=== PATIENT | male | born 1950 | race Caucasian/White ===

== ENCOUNTER 2025-07-29 17:38 | Observation (INO) ==
[2025-07-29 18:04] VITALS: BMI 29.2
--- NOTE | 2025-07-29 18:08 | EKG ---
Test Reason : weakness Blood Pressure : */* mmHG Vent. Rate : 52 BPM Atrial Rate : 125 BPM P-R Int : * ms QRS Dur : 100 ms QT Int : 466 ms P-R-T Axes : 118 45 40 degrees QTc Int : 433 ms sinus arrythmia Nonspecific T wave abnormality Abnormal ECG No previous ECGs available Confirmed by Slim Ruth MD ([id number]) on 07/30/2025 9:45:29 AM Referred By: Confirmed By: Slim Ruth MD
--- NOTE | 2025-07-29 18:12 | DR.DIZZY ---
HPI Time seen Time Seen by Provider: 07/29/25 17:40 PCP Primary Care Physician: Enrrique Complaint Chief Complaint Doctor Comments: 75-year-old male to ED from home via EMS with increasing weakness. Patient states that he fell down about a month ago with injury to head and neck back was not evaluated. Has not been feeling well since that time. His roommate found him today slumped over he is unsure what happened unsure about LOC. Unknown time of last well. Syncopal cardiac workup initiated will consult teleneuro Chief Complaint:: EMS state that the patient was seen slumped over in a chair by his room mate. They state that he was very weak and lethargic on arrival, and his blood pressure was low at 90/50. The patient states that he is unsure what happened, but he felt really weak and hurts from his neck down from a fall around a month ago. He says that the pain is mostly in his hips and right leg. He did not get seen after the fall. COVID-19 Coronavirus risk:travel/contact w/high risk person: No Has patient experienced Coronavirus symptoms: No Source History Provided: Patient and EMS Mode of Arrival Mode of Arrival: Stretcher Timing Onset of Chief Complaint: 07/29/25 Context Stroke Symptoms: None PMH PMH Past Medical History: Yes Past Medical History: Diabetes, Dyslipidemia, Hypertension and NM Past Surgical History: Yes Surgical History: CABG/Valve Surgery and Ortho Surgery Family History History of Family Medical Conditions: Yes Family Medical History: Diabetes Mellitus, Cancer, NM, Coronary Artery Disease and Hypertension Social History Does patient currently use any type of tobacco product: No Have you used tobacco products in the last 12 months: No Type of Tobacco Use: None Does any household member use tobacco: No Alcohol Use: None Do you use any recreational Drugs:: No Lives With: Family Lives Where: Home Travel Risk Coronavirus risk:travel/contact w/high risk person: No Has patient experienced Coronavirus symptoms: No Infectious screening In the last 2 months have you had wt loss of >10#?: NO Have you had fever, night sweats or hemotysis?: No Have you traveled outside the country in the last 6 months?: No Isolation: Standard ROS Review of Systems Constitutional: No Symptoms Reported Eyes: No Symptoms Reported ENTM: No Symptoms Reported Respiratoy: No Symptoms Reported Cardiovascular: No Symptoms Reported Gastrointestinal/Abdominal: No Symptoms Reported Genitourinary: No Symptoms Reported Neurological: See HPI, Numbness, Paresthesia, Weakness, Dizziness, Problems Walking and Other (Questionable LOC) Musculoskeletal: No Symptoms Reported Integumentary: No Symptoms Reported Hematologic/Lymphatic: No Symptoms Reported Endocrine: No Symptoms Reported Psychiatric: No Symptoms Reported All Other Systems: Reviewed and Negative PE Vital Signs Vitals: Vital Signs Temperature 97.5 F Pulse Rate 47 Pulse Rate 56 Pulse Rate 52 Pulse Rate 52 Pulse Rate 51 Respiratory Rate 13 Respiratory Rate 15 Respiratory Rate 20 Respiratory Rate 18 Blood Pressure 142/61 Blood Pressure 142/61 Blood Pressure 148/65 O2 Sat by Pulse Oximetry 99 O2 Sat by Pulse Oximetry 99 O2 Sat by Pulse Oximetry 96 O2 Sat by Pulse Oximetry 99 General Limitations: No Limitations General Appearance: Alert and In No Apparent Distress (Alert answers questions but slow to speak) Head Head Exam: Normal Inspection Eyes Eye exam: Normal Appearance ENT ENT Exam: Normal Exam, Normal Oropharynx and Normal External Ear Exam Neck Neck Exam: Normal Inspection and Full ROM Chest Chest Inspection: Normal Inspection Respiratory Respiratory Exam: Normal Lung Sounds Bilat Cardiovascular Cardiovascular Exam: Regular Rate and Normal Rhythm Abdominal Exam Abdominal Exam: Normal Inspection, Normal Bowel Sounds and Soft Rectal Rectal Exam: Deferred Extremeties Extremities Exam: Normal Inspection and Full ROM Back Back Exam: Normal Inspection and Full ROM Neurologic Neurological Exam: Alert and Oriented X3 Psychiatric Psychiatric Exam: Normal Affect and Normal Mood Skin Skin Exam: Warm, Dry, Intact and Normal Color COURSE Treatment Treatment: Discussed with teleneuro no focal signs outside of window does not recommend CTA head neck nor thrombolytics. Continue metabolic workup and admit for MRI tomorrow Discussed with patient family reviewed findings. Discussed with Dr. Osuna Will admit for observation MRI tomorrow as recommended by teleneuro. [facility] Labs Reviewed 07/29/25 18:59 07/29/25 18:59 Laboratory: WBC 8.0 X10^3/uL (3.6-10.0) 07/29/25 18:59 RBC 4.21 X10^6/uL (4.7-6.0) L 07/29/25 18:59 Hgb 13.0 g/dL (13.5-18.0) L 07/29/25 18:59 Hct 38.2 % (42.0-54.0) L 07/29/25 18:59 MCV 90.7 fL (80.0-100.0) 07/29/25 18:59 MCH 30.9 pg (27.0-34.0) 07/29/25 18:59 MCHC 34.1 g/dL (33.0-35.0) 07/29/25 18:59 RDW 14.3 % (11.6-16.5) 07/29/25 18:59 Plt Count 152 X10^3/uL (150.0-450.0) 07/29/25 18:59 MPV 8.1 fL (7.4-11.0) 07/29/25 18:59 Neut % (Auto) 75.2 % (42.0-75.0) H 07/29/25 18:59 Lymph % (Auto) 15.7 % (21.0-51.0) L 07/29/25 18:59 [place] % (Auto) 7.1 % (0.0-13.0) 07/29/25 18:59 Eos % (Auto) 1.7 % (0.9-2.9) 07/29/25 18:59 Baso % (Auto) 0.3 % (0.2-1.0) 07/29/25 18:59 Neut # (Auto) 6.0 x10^3/uL (2.2-4.8) H 07/29/25 18:59 Lymph # (Auto) 1.3 X10^3/uL (1.3-2.9) 07/29/25 18:59 [place] # (Auto) 0.6 x10^3/uL (0.3-0.8) 07/29/25 18:59 Eos # (Auto) 0.1 x10^3/uL (0.0-0.2) 07/29/25 18:59 Baso # (Auto) 0.0 X10^3/uL (0.0-0.1) 07/29/25 18:59 Absolute Nucleated RBC 0.0 /100WBC 07/29/25 18:59 PT 13.6 SECONDS (11.8-14.3) 07/29/25 18:59 INR Target Range - 07/29/25 18: INR 1.03 (0.8-1.3) 07/29/25 18:59 APTT 28.0 SECONDS (22.9-36.5) 07/29/25 18:59 PTT Comment - 07/29/25 18:59 Fibrinogen 384 mg/dL (239-489) 07/29/25 18:59 Sodium 143 mmol/L (136-145) 07/29/25 18:59 Corrected Sodium 145 mmol/L (136-145) 07/29/25 18:59 Potassium 4.6 mmol/L (3.5-5.1) 07/29/25 18:59 Chloride 106 mmol/L (98-107) 07/29/25 18:59 Carbon Dioxide 31.6 mmol/L (21-32) 07/29/25 18:59 BUN 37 mg/dL (7-18) H 07/29/25 18:59 Creatinine 1.83 mg/dL (0.70-1.30) H 07/29/25 18:59 Est GFR (MDRD) Af Amer 46 (>60) L 07/29/25 18:59 Est GFR (MDRD) Non-Af 38 (>60) L 07/29/25 18:59 Glucose 165 mg/dL (65-99) H 07/29/25 18:59 POC Glucose (mg/dL) 227 mg/dL (65-99) H 07/29/25 18:11 Calcium 8.8 mg/dL (8.5-10.1) 07/29/25 18:59 Corrected Calcium 9.4 mg/dL (8.5-10.1) 07/29/25 18:59 Total Bilirubin 0.30 mg/dL (0.2-1.0) 07/29/25 18:59 AST 16 Units/L (15-37) 07/29/25 18:59 ALT 17 Units/L (12-78) 07/29/25 18:59 Alkaline Phosphatase 111 Units/L (46-116) 07/29/25 18:59 Creatine Kinase 70 Units/L (39-308) 07/29/25 18:59 Troponin I High Sens 13.5 ng/L (4.0-60.0) 07/29/25 18:59 Total Protein 6.2 g/dL (6.4-8.2) L 07/29/25 18:59 Albumin 3.2 g/dL (3.4-5.0) L 07/29/25 18:59 Globulin 3.0 g/dL (2.5-4.5) 07/29/25 18:59 Albumin/Globulin Ratio 1.1 Ratio (1.1-2.1) 07/29/25 18:59 Triglycerides 71 mg/dL (0-150) 07/29/25 18:59 Cholesterol 164 mg/dL (0-200) 07/29/25 18:59 LDL Cholesterol, Calc 102 mg/dL (0-100) H 07/29/25 18:59 HDL Cholesterol 48 mg/dL (40-60) 07/29/25 18:59 Cholesterol/HDL Ratio 3.4 (0.0-5.0) 07/29/25 18:59 Specimen Type Clean catch urine 07/29/25 18:58 Urine Color Yellow (YELLOW) 07/29/25 18:58 Urine Appearance Clear (CLEAR) 07/29/25 18:58 Urine pH 6.0 (5.0 - 8.0) 07/29/25 18:58 Ur Specific [place] 1.010 (1.000-1.030) 07/29/25 18:58 Urine Protein 1+ (NEGATIVE) 07/29/25 18:58 Urine Glucose (UA) 4+ (NEGATIVE) 07/29/25 18:58 Urine Ketones Negative (NEGATIVE) 07/29/25 18:58 Urine Blood Negative (NEGATIVE) 07/29/25 18:58 Urine Nitrite Positive (NEGATIVE) 07/29/25 18:58 Urine Bilirubin Negative (NEGATIVE) 07/29/25 18:58 Urine Urobilinogen Normal (NORMAL) 07/29/25 18:58 Ur Leukocyte Esterase 2+ (NEGATIVE) 07/29/25 18:58 Urine RBC 0-2 /HPF (0-3) 07/29/25 18:58 Urine WBC 20-30 /HPF (0-5) A 07/29/25 18:58 Ur Squamous Epith Cells Rare /HPF (NEGATIVE) 07/29/25 18:58 Amorphous Sediment 1+ /HPF (NEGATIVE) 07/29/25 18:58 Urine Bacteria Trace /HPF (NEGATIVE) 07/29/25 18:58 Ur Culture Indicated? Yes/culture set up 07/29/25 18:58 XRAY X-ray Results: me: DURAN WALKER : 1950 Sex: M Location: ER Order Number(s): [id number] Procedure(s):CT CERVICAL SPINE W/O CON Ordering Physician: Scott Sanders Primary Care: NFD,None Service Date: 07/29/25 Service Time: 183 EXAM: CERVICAL SPINE W/O CON HISTORY: slumped over in a chair. They state that he was very weak and lethargic on arrival, and his blood pressure was low at 90/50; COMPARISON: MRI cervical spine from April 03, 2021 TECHNIQUE: Axial non-contrast images of the cervical spine with coronal and sagittal reformats. Radiation dose: 346.76 mGy-cm total DLP FINDINGS: Vertebral body heights are maintained with normal alignment. Status post anterior spinal fusion at C3-C4. Multilevel cbdk-ky-duovlivp degenerative disc and joint changes with bulky anterior endplate marginal osteophyte formation. Multilevel neural foraminal narrowing. Status post multilevel laminectomies. No fracture identified. Posterior elements are intact without jumped or perched facets. Prevertebral soft tissues are normal. Atlantoaxial articulation is intact. Soft tissues are unremarkable. Lung apices are unremarkable. IMPRESSION: 1. No acute abnormality. 2. Status post anterior spinal fusion at C3-C4. Multilevel tkko-zp-yqsqavyg degenerative disc and joint changes with bulky anterior endplate marginal osteophyte formation. Multilevel neural foraminal narrowing. Name: DURAN WALKER : 1950 Sex: M Location: ER Order Number(s): [id number] Procedure(s):BRAIN CT W/O CON Ordering Physician: Scott Sanders Primary Care: NFD,None Service Date: 07/29/25 Service Time: 180 EXAM: BRAIN W/O CON HISTORY: slumped over in a chair. They state that he was very weak and lethargic on arrival, and his blood pressure was low at 90/50; COMPARISON: None. TECHNIQUE: Axial non-contrast images of the head were obtained with coronal and sagittal reformats provided. Radiation dose: 917.54 mGy-cm total DLP FINDINGS: No abnormal areas of acute attenuation in the brain parenchyma. Muñoz-white differentiation remains intact. No intracranial, extra-axial, fluid collection. No hemorrhage. Periventricular chronic microvascular disease. No mass, mass effect or midline shift. Age related brain parenchymal global atrophy. No ventriculomegaly. No acute fracture. Sinuses are well aerated. Mastoid air cells are well aerated. Globes and intra-orbital contents are unremarkable. IMPRESSION: No acute intracranial abnormality identified. Opioid Opioid Risk Tool Age (Marcos box if 16-45): No History of Preadolescent Sexual Abuse: No Total: 0 Total Score Risk Category: Low Risk Copyright: [facility] predicting aberrant behaviors Discharge Plan Diagnosis Discharge Problem: AMS (altered mental status), Urinary tract infection Discharge Plan Patient Disposition: ADMITTED INPATIENT Condition: Stable Prescriptions: No Action carvedilol 25 mg tablet 25 mg PO BID Qty: 200 2RF meclizine 25 mg tablet 25 mg PO QDAY PRN (Reason: motion sickness) Qty: 30 2RF lorazepam [Ativan] 0.5 mg tablet 0.5 mg PO BID MDD 2 PRN (Reason: anxiety) 5 Days Qty: 10 0RF aspirin [Adult Low Dose Aspirin] 81 mg tablet,delayed release (DR/EC) 81 mg PO QDAY tamsulosin 0.4 mg capsule 0.4 mg PO QPM Qty: 30 3RF ropinirole 1 mg tablet 1 mg PO QPM Qty: 90 3RF lisinopril 20 mg tablet 20 mg PO BID Qty: 90 3RF Linzess 290 mcg capsule 290 mcg PO QDAY Qty: 90 3RF atorvastatin 40 mg tablet 40 mg PO QPM Qty: 30 3RF allopurinol 100 mg tablet 50 mg PO QDAY Qty: 50 2RF albuterol sulfate 90 mcg/actuation HFA aerosol inhaler 2 puff PO Q4-6H PRN (Reason: shortness of breath or wheezing) Qty: 6.7 3RF Farxiga 10 mg tablet 10 mg PO QDAY Qty: 100 2RF furosemide 20 mg tablet 20 mg PO QDAY Qty: 100 2RF glipizide 10 mg tablet 10 mg PO QDAY Qty: 100 2RF levothyroxine 125 mcg tablet 125 mcg PO QDAY Qty: 100 2RF hydrocortisone [Anusol-HC] 2.5 % cream with perineal applicator 1 applic DE QD-BID PRN (Reason: pain) Qty: 30 0RF hydrocodone-acetaminophen 10-325 mg tablet 1 tab PO QID MDD 4 PRN (Reason: pain) 30 Days Qty: 120 0RF Health Concerns: Post Hospitalization: new medications and changes needed to prevent readmission or further decline. Pt educated and given instructions on all concerns. Plan of Treatment: Continue with present treatment and follow up plan. Pt is to keep follow up appointment as instructed and take medications as ordered. Follow ups/Referrals Follow ups/Referrals: NFD,None [Primary Care Provider] - 3 days Instructions Print Language: THAI
--- NOTE | 2025-07-29 18:43 | CT ---
EXAM: BRAIN W/O CON HISTORY: slumped over in a chair. They state that he was very weak and lethargic on arrival, and his blood pressure was low at 90/50; COMPARISON: None. TECHNIQUE: Axial non-contrast images of the head were obtained with coronal and sagittal reformats provided. Radiation dose: 917.54 mGy-cm total DLP FINDINGS: No abnormal areas of acute attenuation in the brain parenchyma. Muñoz-white differentiation remains intact. No intracranial, extra-axial, fluid collection. No hemorrhage. Periventricular chronic microvascular disease. No mass, mass effect or midline shift. Age related brain parenchymal global atrophy. No ventriculomegaly. No acute fracture. Sinuses are well aerated. Mastoid air cells are well aerated. Globes and intra-orbital contents are unremarkable. IMPRESSION: No acute intracranial abnormality identified. THIS IS AN ELECTRONICALLY VERIFIED FINAL REPORT 07/29/2025 6:39 PM - Electronically signed by Kentrell Machado MD
--- NOTE | 2025-07-29 18:59 | CT ---
EXAM: CERVICAL SPINE W/O CON HISTORY: slumped over in a chair. They state that he was very weak and lethargic on arrival, and his blood pressure was low at 90/50; COMPARISON: MRI cervical spine from April 03, 2021 TECHNIQUE: Axial non-contrast images of the cervical spine with coronal and sagittal reformats. Radiation dose: 346.76 mGy-cm total DLP FINDINGS: Vertebral body heights are maintained with normal alignment. Status post anterior spinal fusion at C3-C4. Multilevel wfuh-ac-svkmlwqt degenerative disc and joint changes with bulky anterior endplate marginal osteophyte formation. Multilevel neural foraminal narrowing. Status post multilevel laminectomies. No fracture identified. Posterior elements are intact without jumped or perched facets. Prevertebral soft tissues are normal. Atlantoaxial articulation is intact. Soft tissues are unremarkable. Lung apices are unremarkable. IMPRESSION: 1. No acute abnormality. 2. Status post anterior spinal fusion at C3-C4. Multilevel amfp-qb-icsokibe degenerative disc and joint changes with bulky anterior endplate marginal osteophyte formation. Multilevel neural foraminal narrowing. THIS IS AN ELECTRONICALLY VERIFIED FINAL REPORT 07/29/2025 6:56 PM - Electronically signed by Kentrell Machado MD
[2025-07-29 19:04] LABS: BLOOD/HEMOGLOBIN,URINE NEGATIVE (NEGATIVE); LEUKOCYTE ESTERASE ,URINE 2+ (NEGATIVE); NITRITES,URINE POSITIVE (NEGATIVE)
--- NOTE | 2025-07-29 19:05 | TELESTROKE ---
[facility] Consult Date of Consult Date of Exam: 07/29/25 Time of Arrival to the ED: 17:38 Allergies Allergies Allergy/AdvReac Type Severity Reaction Status Date / Time No Known Drug Allergies Allergy Unknown Verified 07/29/25 18:54 Vital Signs Vital Signs: Temp Pulse Resp BP Pulse Ox O2 Del Method 07/29/25 17:56 97.5 F L 51 L 18 148/65 99 Room Air History of Present Illness History of Present Illness: [facility] Patient Name:Marlo Martínez Date of :1950 Identification Number: Date of Service:07/29/2025 18:11:57 Diagnosis:M62.81 - Generalized Muscle Weakness Impression: 75-year-old man with history of hypertension, hyperlipidemia, diabetes, hypothyroidism, chronic back pain on opiate therapy, presenting to the hospital with a lightheaded feeling along with generalized weakness, and found slumped over in his chair by his roommate, unclear last known normal. He was noted to be mildly hypotensive and bradycardic. At the time of my assessment, patient's blood pressure is improved and he feels somewhat better. NIH stroke scale is a 4, patient does not know month, has mild dysarthria, and mild drift in both arms. Noncontrast head CT did not show acute abnormalities. Thrombolytic was not advised given unclear last known normal, lack of severe focal deficits, and also had head trauma 1 month ago. Low clinical suspicion for LVO, so CTA not pursued. I suspect the possibility of hemodynamic etiology to his symptoms (from hypotension and bradycardia). Consider underlying cardiac etiology, versus metabolic/infectious causes. Lower suspicion for stroke, although considering the acute onset the patient's symptoms, along with his multiple vascular risk factors, would advise further workup to exclude the possibility of stroke. Our recommendations are outlined below. Recommendations: Stroke/Telemetry Floor Neuro Checks (Q4) Bedside Swallow Eval DVT Prophylaxis IV Fluids, Normal Saline Head of Bed 30 Degrees Euglycemia and Avoid Hyperthermia (PRN Acetaminophen) Initiate or continue Aspirin 81 MG daily Antihypertensives PRN if Blood pressure is greater than 220/120 or there is a concern for End organ damage/contraindications for permissive HTN. If blood pressure is greater than 220/120 give labetalol PO or IV or Vasotec IV with a goal of 15% reduction in BP during the first 24 hours. -MRI brain w/o contrast -MRA head w/o contrast -MRA neck w/wo contrast -metabolic/infectious/cardiac work-up -consider checking orthostatic vitals Sign Out: Discussed with Emergency Department Provider Advanced Imaging:Advanced Imaging Deferred because: Stroke not suspected with clinical presentation and exam Metrics: Last Known Well: Unknown Dispatch Time: 07/29/2025 18:11:57 Arrival Time: 07/29/2025 17:38:00 Initial Response Time: 07/29/2025 18:19:36Symptoms: generalized weakness, lightheaded. Initial patient interaction: 07/29/2025 18:22:34 NIHSS Assessment Completed: 07/29/2025 18:33:32Patient is not a candidate for Thrombolytic. Thrombolytic Medical Decision: 07/29/2025 18:34:00Patient was not deemed candidate for Thrombolytic because of following reasons: Significant head trauma or stroke in previous 3 months . Care-team unable to determine eligibility. . CT Head: I personally reviewed all the CT images that were available to me and it showed: no acute intracranial abnormalities Primary Provider Notified of Diagnostic Impression and Management Plan on: 07/29/2025 18:39:44 History of Present Illness:Patient is a 75 year old Male. Patient was brought by EMS for symptoms of generalized weakness, lightheaded. 75 years old patient presented with altered consciousness after being found slumped over in a chair by their roommate. The patient reports that he was sitting in his chair when he suddenly became unable to move or function properly. He experienced lightheadedness, weakness, and a feeling as if he was going to faint or pass out. The patient states, "I couldn't function. I didn't know what I was doing," indicating some disorientation during the episode. The patient is uncertain about the exact time when symptoms began or when he last felt normal prior to the incident. His roommate called emergency services. Upon initial assessment, the patient's heart rate was noted to be low at 48-51 beats per minute, and his blood pressure was 90/50 mmHg. He received intravenous fluids, which improved his blood pressure, though his heart rate remained low. The patient reports that he feels some improvement, but still feels generally weak. Additionally, the patient describes a fall that occurred approximately one month ago when he fell off two steps, hit the back of his head against a recliner. Since this fall, he has been experiencing pain from his neck down through his hips and right leg. The patient takes a daily 81 mg aspirin. Past Medical History: Hypertension Diabetes Mellitus Hyperlipidemia There is no history of Stroke Other PMH: hypothyroidism; chronic back pain, on opioid therapy Medications: No Anticoagulant use Antiplatelet use:Yesaspirin 81 mg daily Reviewed EMR for current medications Allergies: Reviewed Social History: Drug Use: No Family History: There is no family history of premature cerebrovascular disease pertinent to this consultation ROS : 14 Points Review of Systems was performed and was negative except mentioned in HPI. Past Surgical History: There Is No Surgical History Contributory To Todays Visit Examination: BP(148/65),Pulse(51), 1A: Level of Consciousness - Alert; keenly responsive+ 0 1B: Ask Month and Age - 1 Question Right+ 1 1C: Blink Eyes & Squeeze Hands - Performs Both Tasks+ 0 2: Test Horizontal Extraocular Movements - Normal+ 0 3: Test Visual Meza - No Visual Loss+ 0 4: Test Facial Palsy (Use Grimace if Obtunded) - Normal symmetry+ 0 5A: Test Left Arm Motor Drift - Drift, but doesn't hit bed+ 1 5B: Test Right Arm Motor Drift - Drift, but doesn't hit bed+ 1 6A: Test Left Leg Motor Drift - No Drift for 5 Seconds+ 0 6B: Test Right Leg Motor Drift - No Drift for 5 Seconds+ 0 7: Test Limb Ataxia (FNF/Heel-Jim) - No Ataxia+ 0 8: Test Sensation - Normal; No sensory loss+ 0 9: Test Language/Aphasia - Normal; No aphasia+ 0 10: Test Dysarthria - Mild-Moderate Dysarthria: Slurring but can be understood+ 1 11: Test Extinction/Inattention - No abnormality+ 0 NIHSS Score:4 NIHSS Free Text :unable to identify month mild shakiness in both arms Pre-Morbid Modified David Scale:3 Points = Moderate disability; requiring some help, but able to walk without assistance Spoke with :Dr. Sadners This consult was conducted in real time using interactive audio and video technology. Patient was informed of the technology being used for this visit and agreed to proceed. Patient located in hospital and provider located at home/office setting. Patient is being evaluated for possible acute neurologic impairment and high probability of imminent or life-threatening deterioration. I spent total of 45 minutes providing care to this patient, including time for face to face visit via telemedicine, review of medical records, imaging studies and discussion of findings with providers, the patient and/or family. Dr Vern Orellana [facility] For Inpatient follow-up with [facility] physician please call [facility] at . As we are not an outpatient service for any post hospital discharge needs please contact the hospital for assistance. If you have any questions for the [facility] physicians or need to reconsult for clinical or diagnostic changes please contact us via [facility] at . Signature :Vern Orellana Medical Decision Making Labs: Laboratory Results - last 24 hr 07/29/25 18:11 POC Glucose (mg/dL) 227 H
[2025-07-29 19:06] LABS: APPEARANCE,URINE CLEAR (CLEAR)
[2025-07-29 19:14] LABS: MEAN PLATELET VOLUME 8.1 fL (7.4-11.0); RED CELL DISTRIBUTION WIDTH 14.3 % (11.6-16.5)
[2025-07-29 19:15] LABS: SQUAMOUS EPITHELIAL CELL,UR RARE /HPF (NEGATIVE)
[2025-07-29 19:21] LABS: INR 1.03 (0.8-1.3)
[2025-07-29 19:28] LABS: CHOL/HDL RATIO 3.4 (0.0-5.0); COR CA(FOR HYPOALB) 9.4 mg/dL (8.5-10.1); COR NA(FOR HYPERGLY) 145.0 mmol/L (136-145); CREATININE 1.83 mg/dL (0.70-1.30); eGFR NON BLACK RACES 38.0 (>60)
[2025-07-29] MEDS ORDERED: ULTRAM PO PRN (20:01)
[2025-07-29] MEDS ORDERED: TYLENOL 325 MG TAB PO PRN (20:01)
[2025-07-29] MEDS ORDERED: ANTIVERT TAB 25 MG PO PRN (20:04)
[2025-07-29] MEDS ORDERED: ATIVAN TAB 0.5 MG PO PRN (20:04)
[2025-07-29] MEDS ORDERED: VENTOLIN or PROAIR HFA INH PRN (20:04)
[2025-07-29] MEDS: LEVAQUIN PREMIX IV 750 MG 750 MG/150 ML BAG IV SCH (20:18)
[2025-07-29] MEDS ORDERED: CONSULT PHARMACY - POTASSIUM & MAGNESIUM XX SCH (21:00)
[2025-07-29] MEDS ORDERED: XOPENEX 1.25 MG/3 ML NEBULE NEB PRN (21:07)
[2025-07-29] MEDS: LIPITOR TAB 40 MG PO SCH (21:17)
[2025-07-29] MEDS: ZESTRIL TAB 20 MG ONE (21:17)
[2025-07-29] MEDS: ZESTRIL TAB 20 MG PO SCH (21:18)
[2025-07-29] MEDS: COREG TAB 25 MG PO SCH (21:18)
[2025-07-29] MEDS: NORCO 5/325 MG TAB PO PRN (21:46)
--- NOTE | 2025-07-30 04:01 | RAD ---
EXAM: CHEST, 1 VIEW HISTORY: slumped over in a chair. They state that he was very weak and lethargic on arrival, and his blood pressure was low at 90/50; COMPARISON: 09/11/2020 FINDINGS: The trachea is midline. The cardiac silhouette is unremarkable. Changes of prior CABG surgery. The lungs are clear without focal infiltrate or effusion. The bony thorax is unremarkable. IMPRESSION: No acute cardiopulmonary disease. THIS IS AN ELECTRONICALLY VERIFIED FINAL REPORT 07/30/2025 3:57 AM - Electronically signed by Joshua Marin MD
[2025-07-30 05:53] LABS: MEAN PLATELET VOLUME 8.3 fL (7.4-11.0); RED CELL DISTRIBUTION WIDTH 14.0 % (11.6-16.5)
[2025-07-30 06:08] LABS: COR CA(FOR HYPOALB) 10.1 mg/dL (8.5-10.1); COR NA(FOR HYPERGLY) 145.0 mmol/L (136-145); CREATININE 1.65 mg/dL (0.70-1.30); eGFR NON BLACK RACES 43.0 (>60)
[2025-07-30] MEDS ORDERED: PHARMACY CONSULT XX SCH (09:00)
[2025-07-30] MEDS: ZYLOPRIM PO SCH (09:28)
[2025-07-30] MEDS: LASIX PO SCH (09:29)
[2025-07-30] MEDS: ASPIRIN EC 81 MG PO SCH (09:29)
[2025-07-30] MEDS: FARXIGA PO SCH (09:30)
[2025-07-30] MEDS: GLUCOTROL PO SCH (09:30)
[2025-07-30] MEDS: ZESTRIL TAB 20 MG ONE (09:33)
[2025-07-30] MEDS: LOVENOX INJ 40 MG SYR SC SCH (10:27)
--- NOTE | 2025-07-30 16:04 | MRI ---
EXAM: MRI BRAIN WITHOUT CONTRAST HISTORY: Patient slumped over COMPARISON: CT dated 07/29/2025. TECHNIQUE: Multiplanar multisequence MRI of the brain was performed without intravenous contrast. FINDINGS: No areas of restricted diffusion. No acute intracranial hemorrhage or extra-axial fluid collection. No mass effect or midline shift. Mild cerebral atrophy and chronic microvascular white matter disease. No hydrocephalus. Major intracranial flow voids are preserved. Paranasal sinuses and mastoid air cells are well-aerated. IMPRESSION: No acute intracranial abnormality. Negative for acute infarction or hemorrhage. THIS IS AN ELECTRONICALLY VERIFIED FINAL REPORT 07/30/2025 4:01 PM - Electronically signed by Ed Pete MD
--- NOTE | 2025-07-30 16:20 | MRI ---
EXAM: MRA NECK W/O CON HISTORY: per tele med order; COMPARISON: None TECHNIQUE: 3-D [id number] MR imaging of the neck was performed using standard department protocol. Stenoses are measured using NASCET criteria. Normal is no stenosis. Mild is less than 50% stenosis. Moderate is 50-69% stenosis. Severe is 70% to 99% stenosis. Total occlusion is no detectable patent lumen. FINDINGS: Aortic arch probably normal in caliber. Common carotid arteries are patent. There is low signal along the posterior wall of the right carotid bulb which could be plaque or flow related artifact. If this is plaque disease, then it represents a moderate stenosis. We could confirm this with either CTA using contrast or carotid sonography. Otherwise, the left carotid bulb is widely patent without stenosis. Cervical segments of the internal carotid arteries are patent to the skull base. IMPRESSION: 1. Findings suspicious for moderate right carotid bulb stenosis THIS IS AN ELECTRONICALLY VERIFIED FINAL REPORT 07/30/2025 4:16 PM - Electronically signed by Luiz John MD
[2025-07-30] MEDS ORDERED: ZESTRIL TAB 20 MG ONE (20:12)
[2025-07-31 06:05] LABS: MEAN PLATELET VOLUME 8.8 fL (7.4-11.0); RED CELL DISTRIBUTION WIDTH 14.1 % (11.6-16.5)
[2025-07-31 06:19] LABS: COR CA(FOR HYPOALB) 9.8 mg/dL (8.5-10.1); CREATININE 1.80 mg/dL (0.70-1.30); eGFR NON BLACK RACES 39 (>60)
[2025-07-31 07:59] VITALS: RESP 18
[2025-07-31] MEDS ORDERED: ZESTRIL TAB 20 MG ONE (08:10)
--- NOTE | 2025-07-31 09:00 | DR.H&P ---
H&P History & Physical for Day of: H&P Date: 07/30/25 Chief Complaint Chief Complaint: syncope weakness History of Present Illness History of Present Illness: Patient is a 75-year-old male presenting with increasing weakness and confusion. He does not recall exactly what happened but review of ED note, his roommate found him today slumped over he is unsure what happened unsure about loss of consciousness. Syncopal cardiac workup initiated and consult with teleneuro recommended further imaging. Labs/imaging: WBC 5.0, hemoglobin 12.5, platelets 150, sodium 145, potassium 4.8, creatinine 1.65, glucose 119, troponin negative, UA consistent with infection, urine culture pending, CT of the head, neck, and chest x-ray did not reveal any acute findings. MRI has been ordered. Results will be pending. Patient was admitted for acute cystitis, syncopal episode, CVA rule out. order echo. Will order PT/OT, continue to closely monitor, restart home medications. He is currently on IV antibioticsLevaquin. Otherwise continue with current treatment plan. Continue closely monitor and follow-up labs/imaging. Time spent on clinical assessment, reviewing labs and imaging, decision making, and documentation greater than 45 minutes. Past Medical History Past Medical History: Diabetes, Dyslipidemia, Hypertension and MD Past Surgical History Surgical History: CABG/Valve Surgery and Ortho Surgery Family History Family Medical History: Diabetes Mellitus, Cancer, MD, Coronary Artery Disease and Hypertension Social History Does patient currently use any type of tobacco product: No Have you used tobacco products in the last 12 months: No Type of Tobacco Use: None Does any household member use tobacco: No Alcohol Use: None Drug Use: None Medications Home Medications: Home Medications Medication Instructions Recorded Confirmed Type aspirin 81 mg tablet,delayed 81 mg PO QDAY 09/22/24 History release (Adult Low Dose Aspirin) Allergies Allergies Allergy/AdvReac Type Severity Reaction Status Date / Time No Known Drug Allergies Allergy Unknown Verified 07/29/25 18:54 Labs 07/31/25 05:10 07/31/25 05:10 Labs: 07/29/25 18:58 Urine,Clean Catch Urine Culture - Preliminary Laboratory WBC 5.0 X10^3/uL (3.6-10.0) 07/30/25 05:12 RBC 4.04 X10^6/uL (4.7-6.0) L 07/30/25 05:12 Hgb 12.5 g/dL (13.5-18.0) L 07/30/25 05:12 Hct 36.5 % (42.0-54.0) L 07/30/25 05:12 MCV 90.3 fL (80.0-100.0) 07/30/25 05:12 MCH 30.8 pg (27.0-34.0) 07/30/25 05:12 MCHC 34.1 g/dL (33.0-35.0) 07/30/25 05:12 RDW 14.0 % (11.6-16.5) 07/30/25 05:12 Plt Count 150 X10^3/uL (150.0-450.0) 07/30/25 05:12 MPV 8.3 fL (7.4-11.0) 07/30/25 05:12 Neut % (Auto) 68.7 % (42.0-75.0) 07/30/25 05:12 Lymph % (Auto) 24.1 % (21.0-51.0) 07/30/25 05:12 [place] % (Auto) 5.2 % (0.0-13.0) 07/30/25 05:12 Eos % (Auto) 1.6 % (0.9-2.9) 07/30/25 05:12 Baso % (Auto) 0.4 % (0.2-1.0) 07/30/25 05:12 Neut # (Auto) 3.4 x10^3/uL (2.2-4.8) 07/30/25 05:12 Lymph # (Auto) 1.2 X10^3/uL (1.3-2.9) L 07/30/25 05:12 [place] # (Auto) 0.3 x10^3/uL (0.3-0.8) 07/30/25 05:12 Eos # (Auto) 0.1 x10^3/uL (0.0-0.2) 07/30/25 05:12 Baso # (Auto) 0.0 X10^3/uL (0.0-0.1) 07/30/25 05:12 Absolute Nucleated RBC 0.2 /100WBC 07/30/25 05:12 PT 13.6 SECONDS (11.8-14.3) 07/29/25 18:59 INR Target Range - 07/29/25 18:59 INR 1.03 (0.8-1.3) 07/29/25 18:59 APTT 28.0 SECONDS (22.9-36.5) 07/29/25 18:59 PTT Comment - 07/29/25 18:59 Fibrinogen 384 mg/dL (239-489) 07/29/25 18:59 Sodium 145 mmol/L (136-145) 07/30/25 05:12 Corrected Sodium 145 mmol/L (136-145) 07/30/25 05:12 Potassium 4.8 mmol/L (3.5-5.1) 07/30/25 05:12 Chloride 109 mmol/L (98-107) H 07/30/25 05:12 Carbon Dioxide 32.4 mmol/L (21-32) H 07/30/25 05:12 BUN 37 mg/dL (7-18) H 07/30/25 05:12 Creatinine 1.65 mg/dL (0.70-1.30) H 07/30/25 05:12 Est GFR (MDRD) Af Amer 52 (>60) L 07/30/25 05:12 Est GFR (MDRD) Non-Af 43 (>60) L 07/30/25 05:12 Glucose 119 mg/dL (65-99) H 07/30/25 05:12 POC Glucose (mg/dL) 128 mg/dL (65-99) H 07/30/25 19:53 Calcium 9.2 mg/dL (8.5-10.1) 07/30/25 05:12 Corrected Calcium 10.1 mg/dL (8.5-10.1) 07/30/25 05:12 Total Bilirubin 0.30 mg/dL (0.2-1.0) 07/30/25 05:12 AST 15 Units/L (15-37) 07/30/25 05:12 ALT 14 Units/L (12-78) 07/30/25 05:12 Alkaline Phosphatase 108 Units/L (46-116) 07/30/25 05:12 Creatine Kinase 70 Units/L (39-308) 07/29/25 18:59 Troponin I High Sens 13.5 ng/L (4.0-60.0) 07/29/25 18:59 Total Protein 5.9 g/dL (6.4-8.2) L 07/30/25 05:12 Albumin 2.9 g/dL (3.4-5.0) L 07/30/25 05:12 Globulin 3.0 g/dL (2.5-4.5) 07/30/25 05:12 Albumin/Globulin Ratio 1.0 Ratio (1.1-2.1) L 07/30/25 05:12 Triglycerides 71 mg/dL (0-150) 07/29/25 18:59 Cholesterol 164 mg/dL (0-200) 07/29/25 18:59 LDL Cholesterol, Calc 102 mg/dL (0-100) H 07/29/25 18:59 HDL Cholesterol 48 mg/dL (40-60) 07/29/25 18:59 Cholesterol/HDL Ratio 3.4 (0.0-5.0) 07/29/25 18:59 Specimen Type Clean catch urine 07/29/25 18:58 Urine Color Yellow (YELLOW) 07/29/25 18:58 Urine Appearance Clear (CLEAR) 07/29/25 18:58 Urine pH 6.0 (5.0 - 8.0) 07/29/25 18:58 Ur Specific [place] 1.010 (1.000-1.030) 07/29/25 18:58 Urine Protein 1+ (NEGATIVE) 07/29/25 18:58 Urine Glucose (UA) 4+ (NEGATIVE) 07/29/25 18:58 Urine Ketones Negative (NEGATIVE) 07/29/25 18:58 Urine Blood Negative (NEGATIVE) 07/29/25 18:58 Urine Nitrite Positive (NEGATIVE) 07/29/25 18:58 Urine Bilirubin Negative (NEGATIVE) 07/29/25 18:58 Urine Urobilinogen Normal (NORMAL) 07/29/25 18:58 Ur Leukocyte Esterase 2+ (NEGATIVE) 07/29/25 18:58 Urine RBC 0-2 /HPF (0-3) 07/29/25 18:58 Urine WBC 20-30 /HPF (0-5) A 07/29/25 18:58 Ur Squamous Epith Cells Rare /HPF (NEGATIVE) 07/29/25 18:58 Amorphous Sediment 1+ /HPF (NEGATIVE) 07/29/25 18:58 Urine Bacteria Trace /HPF (NEGATIVE) 07/29/25 18:58 Ur Culture Indicated? Yes/culture set up 07/29/25 18:58 Blood Type O NEGATIVE 07/29/25 19:02 Antibody Screen Negative 07/29/25 19:02 Review of Systems Constitutional: Weakness Eyes: No Symptoms Reported ENT: No Symptoms Reported Respiratory: No Symptoms Reported Cardiovascular: No Symptoms Reported Gastrointestinal: No Symptoms Reported Genitourinary: No Symptoms Reported Musculoskeletal: No Symptoms Reported Skin: No Symptoms Reported Neurological: No Symptoms Reported Physical Exam Vital Signs: Vital Signs Temperature 97.8 F Temperature 97.8 F Pulse Rate [Left Radial] 55 Pulse Rate [Left Radial] 60 Pulse Rate [Left Radial] 65 Pulse Rate [Left Radial] 74 Respiratory Rate 18 Respiratory Rate 18 Respiratory Rate 15 Respiratory Rate 18 Blood Pressure [Left Arm] 149/66 Blood Pressure [Left Arm] 126/51 Blood Pressure [Left Arm] 117/56 Blood Pressure [Left Arm] 142/61 Blood Pressure [Left Arm] 131/57 Blood Pressure [Left Arm] 68/39 Blood Pressure [Left Arm] 133/65 O2 Sat by Pulse Oximetry 99 O2 Sat by Pulse Oximetry 100 Oriented: Normal Eyes: Normal Ear: Normal Nose: Normal Throat: Normal Respiratory: Clear Throughout Cardiovascular: Normal : Normal Auscultation: Bowel Sounds: Normal Palpation: Normal Tenderness: Normal Skin: Decreased Turgur Musculoskeletal: Normal Psychiatric: Normal Mood Description: Calm and Appropriate Affect: Normal Speech Pattern: Clear and Appropriate Assessment/Plan (1) Urinary tract infection: Qualifiers: Urinary tract infection type: site unspecified Hematuria presence: with hematuria Qualified Code(s): N39.0 - Urinary tract infection, site not specified; R31.9 - Hematuria, unspecified Status: Acute Plan: IV antibiotics (2) AMS (altered mental status): Qualifiers: Altered mental status type: unspecified Qualified Code(s): R41.82 - Altered mental status, unspecified Status: Acute (3) Syncope: Qualifiers: Syncope type: unspecified Qualified Code(s): R55 - Syncope and collapse Status: Acute (4) Mixed hyperlipidemia: Status: Acute (5) Type 2 diabetes mellitus: Qualifiers: Diabetes mellitus terminal gauger insulin use: without fci use Diabetes mellitus complication status: with other specified complication Qualified Code(s): E11.69 - Type 2 diabetes mellitus with other specified complication Status: Acute (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
[2025-07-31 11:52] VITALS: BP 100/53; PULSE 61; TEMP 97.4; O2SAT 95
--- NOTE | 2025-08-01 12:14 | W.DIS.FURT ---
Summary of Discharge Discharge Summary of Date Date of Exam: 07/31/25 Admission Date Date of Admission: 07/29/25 Admission Diagnosis Patient Problems (Updated 07/31/25 @ 08:57 by Chris Osuna MD) Urinary tract infection (Acute) N39.0 AMS (altered mental status) (Acute) R41.82 Hospital Course: Patient is a 75-year-old male presenting with increasing weakness and confusion. He does not recall exactly what happened but review of ED note, his roommate found him slumped over, he is unsure what happened unsure about loss of consciousness. Syncopal cardiac workup initiated and consult with teleneuro recommended further imaging. Labs/imaging: WBC 5.0, hemoglobin 12.5, platelets 150, sodium 145, potassium 4.8, creatinine 1.65, glucose 119, troponin negative, UA consistent with infection. CT of the head, neck, and chest x-ray did not reveal any acute findings. MRI and MRA ordered. He was started on IV antibiotics. His labs were monitored daily and electrolytes replaced. He was ambulating. He did not have any neurological deficits. MRA neck showed moderate stenosis. MRA head is pending. Urine Cx showed staph epidermidis. Patient was doing well and stable for discharge. He will f/u with PCP for MRA results. He was sent home on PO antibiotics. Vital Signs: Vital Signs (72 hours) 07/29/25 17:56 07/29/25 18:01 07/29/25 18:14 Temperature 97.5 F L Pulse Rate 51 L 52 L Pulse Rate [Left Radial] Respiratory Rate 18 20 Blood Pressure 148/65 142/61 Blood Pressure [Left Arm] O2 Sat by Pulse Oximetry 99 96 Oxygen Delivery Method Room Air Oxygen Flow Rate 07/29/25 18:14 07/29/25 18:14 07/29/25 18:15 Temperature Pulse Rate 52 L 56 L Pulse Rate [Left Radial] Respiratory Rate 15 13 Blood Pressure 142/61 Blood Pressure [Left Arm] O2 Sat by Pulse Oximetry 99 Oxygen Delivery Method Oxygen Flow Rate 07/29/25 18:48 07/29/25 19:57 07/29/25 20:00 Temperature Pulse Rate 47 L 54 L 54 L Pulse Rate [Left Radial] Respiratory Rate 16 10 L Blood Pressure Blood Pressure [Left Arm] O2 Sat by Pulse Oximetry 99 Oxygen Delivery Method Oxygen Flow Rate 07/29/25 20:45 07/29/25 20:45 07/29/25 20:55 Temperature 98.7 F Pulse Rate Pulse Rate [Left Radial] 58 L Respiratory Rate 20 Blood Pressure Blood Pressure [Left Arm] 138/79 163/72 O2 Sat by Pulse Oximetry 99 Oxygen Delivery Method Room Air Room Air Oxygen Flow Rate 07/29/25 20:56 07/29/25 21:15 07/29/25 21:30 Temperature Pulse Rate 56 L Pulse Rate [Left Radial] Respiratory Rate Blood Pressure Blood Pressure [Left Arm] 156/78 O2 Sat by Pulse Oximetry 100 Oxygen Delivery Method Room Air Oxygen Flow Rate 07/29/25 21:46 07/29/25 22:46 07/30/25 00:00 Temperature 97.4 F L Pulse Rate Pulse Rate [Left Radial] 59 L Respiratory Rate 19 19 18 Blood Pressure Blood Pressure [Left Arm] 156/70 O2 Sat by Pulse Oximetry 99 Oxygen Delivery Method Room Air Oxygen Flow Rate 07/30/25 04:00 07/30/25 05:41 07/30/25 06:41 Temperature 97.5 F L Pulse Rate Pulse Rate [Left Radial] 57 L Respiratory Rate 18 18 18 Blood Pressure Blood Pressure [Left Arm] 138/60 O2 Sat by Pulse Oximetry 95 Oxygen Delivery Method Room Air Oxygen Flow Rate 07/30/25 07:00 07/30/25 08:00 07/30/25 08:14 Temperature 97.7 F Pulse Rate Pulse Rate [Left Radial] 65 Respiratory Rate 19 Blood Pressure Blood Pressure [Left Arm] 108/52 O2 Sat by Pulse Oximetry 96 Oxygen Delivery Method Room Air Room Air Room Air Oxygen Flow Rate 07/30/25 11:17 07/30/25 12:00 07/30/25 16:00 Temperature 97.4 F L 97.8 F Pulse Rate Pulse Rate [Left Radial] 61 59 L 74 Respiratory Rate 18 18 Blood Pressure Blood Pressure [Left Arm] 93/53 121/65 133/65 O2 Sat by Pulse Oximetry 98 100 Oxygen Delivery Method Room Air Nasal Cannula Oxygen Flow Rate 2 07/30/25 16:24 07/30/25 16:25 07/30/25 19:00 Temperature Pulse Rate Pulse Rate [Left Radial] 65 60 Respiratory Rate Blood Pressure Blood Pressure [Left Arm] 68/39 131/57 142/61 O2 Sat by Pulse Oximetry Oxygen Delivery Method Oxygen Flow Rate 07/30/25 19:00 07/30/25 19:05 07/30/25 19:05 Temperature Pulse Rate Pulse Rate [Left Radial] Respiratory Rate Blood Pressure Blood Pressure [Left Arm] 117/56 126/51 O2 Sat by Pulse Oximetry Oxygen Delivery Method Room Air Oxygen Flow Rate 07/30/25 20:00 07/30/25 20:00 07/30/25 21:10 Temperature 97.8 F Pulse Rate Pulse Rate [Left Radial] 55 L Respiratory Rate 15 18 Blood Pressure Blood Pressure [Left Arm] 149/66 O2 Sat by Pulse Oximetry 99 Oxygen Delivery Method Room Air Room Air Oxygen Flow Rate 07/30/25 22:10 07/31/25 00:00 07/31/25 04:00 Temperature 97.7 F 98.2 F Pulse Rate Pulse Rate [Left Radial] 53 L 58 L Respiratory Rate 18 14 20 Blood Pressure Blood Pressure [Left Arm] 154/67 145/65 O2 Sat by Pulse Oximetry 98 95 Oxygen Delivery Method Room Air Room Air Oxygen Flow Rate 07/31/25 07:00 07/31/25 07:57 07/31/25 08:15 Temperature 97.8 F Pulse Rate Pulse Rate [Left Radial] 58 L Respiratory Rate 18 Blood Pressure Blood Pressure [Left Arm] 141/65 O2 Sat by Pulse Oximetry 96 Oxygen Delivery Method Room Air Room Air Room Air Oxygen Flow Rate 07/31/25 11:52 Temperature 97.4 F L Pulse Rate Pulse Rate [Left Radial] 61 Respiratory Rate 18 Blood Pressure Blood Pressure [Left Arm] 100/53 O2 Sat by Pulse Oximetry 95 Oxygen Delivery Method Room Air Oxygen Flow Rate Labs: Laboratory Last Values WBC 4.6 X10^3/uL (3.6-10.0) 07/31/25 05:10 RBC 3.76 X10^6/uL (4.7-6.0) L 07/31/25 05:10 Hgb 11.6 g/dL (13.5-18.0) L 07/31/25 05:10 Hct 33.9 % (42.0-54.0) L 07/31/25 05:10 MCV 90.1 fL (80.0-100.0) 07/31/25 05:10 MCH 30.8 pg (27.0-34.0) 07/31/25 05:10 MCHC 34.2 g/dL (33.0-35.0) 07/31/25 05:10 RDW 14.1 % (11.6-16.5) 07/31/25 05:10 Plt Count 138 X10^3/uL (150.0-450.0) L 07/31/25 05:10 MPV 8.8 fL (7.4-11.0) 07/31/25 05:10 Neut % (Auto) 50.2 % (42.0-75.0) 07/31/25 05:10 Lymph % (Auto) 39.1 % (21.0-51.0) 07/31/25 05:10 [place] % (Auto) 7.8 % (0.0-13.0) 07/31/25 05:10 Eos % (Auto) 2.6 % (0.9-2.9) 07/31/25 05:10 Baso % (Auto) 0.3 % (0.2-1.0) 07/31/25 05:10 Neut # (Auto) 2.3 x10^3/uL (2.2-4.8) 07/31/25 05:10 Lymph # (Auto) 1.8 X10^3/uL (1.3-2.9) 07/31/25 05:10 [place] # (Auto) 0.4 x10^3/uL (0.3-0.8) 07/31/25 05:10 Eos # (Auto) 0.1 x10^3/uL (0.0-0.2) 07/31/25 05:10 Baso # (Auto) 0.0 X10^3/uL (0.0-0.1) 07/31/25 05:10 Absolute Nucleated RBC 0.1 /100WBC 07/31/25 05:10 PT 13.6 SECONDS (11.8-14.3) 07/29/25 18:59 INR Target Range - 07/29/25 18:59 INR 1.03 (0.8-1.3) 07/29/25 18:59 APTT 28.0 SECONDS (22.9-36.5) 07/29/25 18:59 PTT Comment - 07/29/25 18:59 Fibrinogen 384 mg/dL (239-489) 07/29/25 18:59 Sodium 142 mmol/L (136-145) 07/31/25 05:10 Corrected Sodium TNP 07/31/25 05:10 Potassium 4.1 mmol/L (3.5-5.1) 07/31/25 05:10 Chloride 106 mmol/L (98-107) 07/31/25 05:10 Carbon Dioxide 27.6 mmol/L (21-32) 07/31/25 05:10 BUN 40 mg/dL (7-18) H 07/31/25 05:10 Creatinine 1.80 mg/dL (0.70-1.30) H 07/31/25 05:10 Est GFR (MDRD) Af Amer 47 (>60) L 07/31/25 05:10 Est GFR (MDRD) Non-Af 39 (>60) L 07/31/25 05:10 Glucose 75 mg/dL (65-99) 07/31/25 05:10 POC Glucose (mg/dL) 109 mg/dL (65-99) H 07/31/25 11:46 Calcium 8.8 mg/dL (8.5-10.1) 07/31/25 05:10 Corrected Calcium 9.8 mg/dL (8.5-10.1) 07/31/25 05:10 Total Bilirubin 0.30 mg/dL (0.2-1.0) 07/31/25 05:10 AST 16 Units/L (15-37) 07/31/25 05:10 ALT 16 Units/L (12-78) 07/31/25 05:10 Alkaline Phosphatase 98 Units/L (46-116) 07/31/25 05:10 Creatine Kinase 70 Units/L (39-308) 07/29/25 18:59 Troponin I High Sens 13.5 ng/L (4.0-60.0) 07/29/25 18:59 Total Protein 5.5 g/dL (6.4-8.2) L 07/31/25 05:10 Albumin 2.8 g/dL (3.4-5.0) L 07/31/25 05:10 Globulin 2.7 g/dL (2.5-4.5) 07/31/25 05:10 Albumin/Globulin Ratio 1.0 Ratio (1.1-2.1) L 07/31/25 05:10 Triglycerides 71 mg/dL (0-150) 07/29/25 18:59 Cholesterol 164 mg/dL (0-200) 07/29/25 18:59 LDL Cholesterol, Calc 102 mg/dL (0-100) H 07/29/25 18:59 HDL Cholesterol 48 mg/dL (40-60) 07/29/25 18:59 Cholesterol/HDL Ratio 3.4 (0.0-5.0) 07/29/25 18:59 Specimen Type Clean catch urine 07/29/25 18:58 Urine Color Yellow (YELLOW) 07/29/25 18:58 Urine Appearance Clear (CLEAR) 07/29/25 18:58 Urine pH 6.0 (5.0 - 8.0) 07/29/25 18:58 Ur Specific [place] 1.010 (1.000-1.030) 07/29/25 18:58 Urine Protein 1+ (NEGATIVE) 07/29/25 18:58 Urine Glucose (UA) 4+ (NEGATIVE) 07/29/25 18:58 Urine Ketones Negative (NEGATIVE) 07/29/25 18:58 Urine Blood Negative (NEGATIVE) 07/29/25 18:58 Urine Nitrite Positive (NEGATIVE) 07/29/25 18:58 Urine Bilirubin Negative (NEGATIVE) 07/29/25 18:58 Urine Urobilinogen Normal (NORMAL) 07/29/25 18:58 Ur Leukocyte Esterase 2+ (NEGATIVE) 07/29/25 18:58 Urine RBC 0-2 /HPF (0-3) 07/29/25 18:58 Urine WBC 20-30 /HPF (0-5) A 07/29/25 18:58 Ur Squamous Epith Cells Rare /HPF (NEGATIVE) 07/29/25 18:58 Amorphous Sediment 1+ /HPF (NEGATIVE) 07/29/25 18:58 Urine Bacteria Trace /HPF (NEGATIVE) 07/29/25 18:58 Ur Culture Indicated? Yes/culture set up 07/29/25 18:58 Blood Type O NEGATIVE 07/29/25 19:02 Antibody Screen Negative 07/29/25 19:02 Reason For Visit: AMS Discharge Diagnosis All Active Problems (Updated 07/31/25 @ 08:57 by Chris Osuna MD) Syncope (Acute) Urinary tract infection (Acute) AMS (altered mental status) (Acute) Folliculitis (Acute) Hemorrhoids (Acute) Dizziness (Acute) History of coronary artery bypass graft (Acute) Mixed hyperlipidemia (Acute) Gout (Acute) Urinary hesitancy (Acute) Chronic kidney disease, stage 3b (Acute) Normocytic anemia (Acute) Orthostasis (Acute) Falling (Acute) Cough productive of yellow sputum (Acute) Lower respiratory infection (Acute) Type 2 diabetes mellitus (Acute) Nocturia more than twice per night (Acute) Arthralgia (Acute) Myalgia (Acute) Night sweats (Acute) Pre-syncope (Acute) History of tetanus, diphtheria, and acellular pertussis booster vaccination (Tdap) (Acute) Pneumococcal vaccination administered at current visit (Acute) Low energy (Acute) Degenerative disc disease, lumbar (Acute) Therapeutic opioid-induced constipation (OIC) (Acute) Chronic low back pain with right-sided sciatica (Acute) Degenerative joint disease (DJD) of lumbar spine (Acute) Abnormal cardiac enzyme level (Acute) History of GI bleed (Acute) Plan of Treatment: Continue with present treatment and follow up plan. Pt is to keep follow up appointment as instructed and take medications as ordered. Discharge Medications Discharge Medications: No Known Drug Allergies Allergy (Unknown, Verified 07/29/25 18:54) New Prescriptions ciprofloxacin HCl 500 mg tablet (Cipro) 500 mg PO Q12H #14 tabs 07/31/25 [Rx] Discharge Disposition Discharge Disposition: home Discharge Condition: stable Discharge Plan Discharge Plan Hospital Course: Patient is a 75-year-old male presenting with increasing weakness and confusion. He does not recall exactly what happened but review of ED note, his roommate found him slumped over, he is unsure what happened unsure about loss of consciousness. Syncopal cardiac workup initiated and consult with teleneuro recommended further imaging. Labs/imaging: WBC 5.0, hemoglobin 12.5, platelets 150, sodium 145, potassium 4.8, creatinine 1.65, glucose 119, troponin negative, UA consistent with infection. CT of the head, neck, and chest x-ray did not reveal any acute findings. MRI and MRA ordered. He was started on IV antibiotics. His labs were monitored daily and electrolytes replaced. He was ambulating. He did not have any neurological deficits. MRA neck showed moderate stenosis. MRA head is pending. Urine Cx showed staph epidermidis. Patient was doing well and stable for discharge. He will f/u with PCP for MRA results. He was sent home on PO antibiotics. Patient Disposition: 01 HOME, SELF-CARE Condition: Stable Health Concerns: Post Hospitalization: new medications and changes needed to prevent readmission or further decline. Pt educated and given instructions on all concerns. Plan of Treatment: Continue with present treatment and follow up plan. Pt is to keep follow up appointment as instructed and take medications as ordered. Prescriptions: New ciprofloxacin HCl [Cipro] 500 mg Tablet 500 mg PO Q12H Qty: 14 0RF acetaminophen 325 mg Tablet 650 mg PO Q6H PRN0RF aspirin 81 mg Tablet,Delayed Release (Dr/Ec) 81 mg PO QDAY 0RF albuterol sulfate [Ventolin HFA] 90 mcg/actuation Hfa Aerosol Inhaler 2 puff INH Q4-6H PRN0RF Continued carvedilol 25 mg tablet 25 mg PO BID Qty: 200 2RF meclizine 25 mg tablet 25 mg PO QDAY PRN (Reason: motion sickness) Qty: 30 2RF lorazepam [Ativan] 0.5 mg tablet 0.5 mg PO BID MDD 2 PRN (Reason: anxiety) 5 Days Qty: 10 0RF aspirin [Adult Low Dose Aspirin] 81 mg tablet,delayed release (DR/EC) 81 mg PO QDAY tamsulosin 0.4 mg capsule 0.4 mg PO QPM Qty: 30 3RF ropinirole 1 mg tablet 1 mg PO QPM Qty: 90 3RF lisinopril 20 mg tablet 20 mg PO BID Qty: 90 3RF Linzess 290 mcg capsule 290 mcg PO QDAY Qty: 90 3RF atorvastatin 40 mg tablet 40 mg PO QPM Qty: 30 3RF allopurinol 100 mg tablet 50 mg PO QDAY Qty: 50 2RF albuterol sulfate 90 mcg/actuation HFA aerosol inhaler 2 puff PO Q4-6H PRN (Reason: shortness of breath or wheezing) Qty: 6.7 3RF Farxiga 10 mg tablet 10 mg PO QDAY Qty: 100 2RF furosemide 20 mg tablet 20 mg PO QDAY Qty: 100 2RF glipizide 10 mg tablet 10 mg PO QDAY Qty: 100 2RF levothyroxine 125 mcg tablet 125 mcg PO QDAY Qty: 100 2RF hydrocortisone [Anusol-HC] 2.5 % cream with perineal applicator 1 applic [place] QD-BID PRN (Reason: pain) Qty: 30 0RF hydrocodone-acetaminophen 10-325 mg tablet 1 tab PO QID MDD 4 PRN (Reason: pain) 30 Days Qty: 120 0RF Orders to Discharge Patient Discharge Orders: Discharge (Routine); Ordered 07/31/25 Ordered By: Edith Law Follow ups/Referrals Follow ups/Referrals: Chris Osuna MD [Primary Care Provider, MEDICAL] - 1 WEEK NFD,None [STAFF PHYSICIAN] - 3 days Instructions Instructions: Near-Syncope, [id number], Syncope Stand Alone Forms: Excuse From Work or School, Find Help Web Site, Post Hospital Follow Up Care Print Language: SIN[place]
== END 2025-07-31 15:55 | disposition home or self-care (01) ==
LOC: MED/SURG 17:38 → ER 17:38 → SUPCPDRO 20:01 → MED/SURG 20:46
PROVIDERS: ADMIT Family Medicine; ATTEND Family Medicine
DX: I95.89 Other hypotension; I25.2 Old myocardial infarction; Z60.8 Other problems related to social environment; M62.81 Muscle weakness (generalized); Z95.2 Presence of prosthetic heart valve; Z91.81 History of falling; Z59.82 Transportation insecurity; Z16.29 Resistance to other single specified antibiotic; M47.26 Other spondylosis with radiculopathy, lumbar region; E11.65 Type 2 diabetes mellitus with hyperglycemia; M50.31 Other cervical disc degeneration, high cervical region; N39.0 Urinary tract infection, site not specified; I25.810 Atherosclerosis of coronary artery bypass graft(s) without angina pectoris; R94.31 Abnormal electrocardiogram [ECG] [EKG]; I10 Essential (primary) hypertension; R41.82 Altered mental status, unspecified; B95.7 Other staphylococcus as the cause of diseases classified elsewhere; R55 Syncope and collapse; R26.89 Other abnormalities of gait and mobility; Z59.869 Financial insecurity, unspecified; R00.1 Bradycardia, unspecified; I49.8 Other specified cardiac arrhythmias